=== PATIENT | female | born 1955 | race African-American/Black ===

== ENCOUNTER → 2017-04-02 | Day surgery (SDC) | payer BC ==
[~2017-04-02] MED LIST: BENTYL10 M1 PO; NEURONTIN PO; PROTONIX PO
--- NOTE | ~2017-04-02 | OR ---
Unit #: [id number] #: [id number] Patient: ANDREY AGRAWAL [id number] [address] [address] [id number] O MR#: [id number] NAME: ANDREY AGRAWAL ROOM: Date of Procedure: 04/02/2017 Admission Date: 04/02/2017 Surgeon: Roman Nance M.D. : 1955 Attending Physician: Roman Nance M.D. Primary Care Physician: Tod Calabrese M.D. OPERATIVE REPORT PREOPERATIVE DIAGNOSES Dysphagia. PROCEDURES PERFORMED 1. Upper gastrointestinal endoscopy and biopsy. 2. Upper gastrointestinal endoscopy and dilation using 18 to 20 mm TTS balloon. POSTOPERATIVE DIAGNOSES 1. The patient had distal esophageal mucosal ring. The latter was dilated using an 18 to 20 mm TTS balloon. 2. Mild prepyloric antral gastritis. This was in the form of focal erythema in the antral area. 3. Rest of the examination up to third part of duodenum was normal. The biopsies obtained from the antrum for CLOtest. RECOMMENDATIONS 1. The patient being started on pantoprazole 40 mg p.o. daily. 2. She will be followed up in the office in 3 months' time. SEDATION USED MAC. DESCRIPTION OF PROCEDURE Following detailed explanation of potential risks and complications of an upper endoscopy, namely perforation, bleeding, and complications related to sedation, the patient was brought to GI lab and laid in the left lateral decubitus position. Lubricated tip of the Olympus video upper endoscope was passed through the bite block into the proximal esophagus under direct vision. The entire esophageal mucosa was examined and the patient was noted to have distal esophageal mucosal ring. The latter was clearly partially obstructing. The scope was then advanced into the gastric cavity and the latter was insufflated. Mucosa of the fundus, body, and antrum was examined. Mild prepyloric antral erythema indicating antral gastritis was noted. Pylorus was intubated with visualization of the normal duodenal bulb and second and third part of the duodenum. Upon withdrawal and retroflexion, incisura, cardia, and greater curve examined and biopsy was obtained from the antrum for CLOtest. The scope was then withdrawn in the distal esophagus. The distal esophageal mucosal ring was dilated using an 18 to 20 mm TTS balloon up to 20 mm. Minimal bleeding was noted after effective dilation. The area was washed with water and good hemostasis was achieved. The scope was then withdrawn all the way up Unit #: [id number] #: [id number] Patient: ANDREY AGRAWAL to pharynx. No additional findings noted. The patient tolerated the procedure without any postprocedure complications. Dictated by... Oleg Horvath/bennett TD: 04/02/2017 12:01 JOB #: [id number] CC: Tod Calabrese M.D. OPERATIVE REPORT Page 1 of 1 X Roman Nance MD X PROCEDURE OPERATIVE NOTE
== END | disposition home or self-care (01) ==
LOC: COPS 06:08
DX: K29.70 Gastritis, unspecified, without bleeding (principal); K22.2 Esophageal obstruction; M19.90 Unspecified osteoarthritis, unspecified site; F17.210 Nicotine dependence, cigarettes, uncomplicated; Z88.0 Allergy status to penicillin
CPT/HCPCS: 87077